=== PATIENT | female | born 1960 | race African-American/Black ===

== ENCOUNTER 2020-09-03 08:09 | Outpatient (CLI) | payer BC ==
[2020-09-03] MEDS ORDERED: Iopamidol 370 76% 100 ML VIAL ONE (14:18)
== END 2020-09-03 08:10 | disposition home or self-care (01) ==
LOC: CT 08:09
PROVIDERS: ATTEND Urology
DX: N20.2 Calculus of kidney with calculus of ureter (principal); G89.29 Other chronic pain; Q61.01 Congenital single renal cyst; Q62.31 Congenital ureterocele, orthotopic; N28.9 Disorder of kidney and ureter, unspecified
CPT/HCPCS: 74178; Q9967

== ENCOUNTER 2020-09-03 14:59 | Outpatient (CLI) | payer BC | END 2020-09-03 15:00 | disposition home or self-care (01) | LOC: BICRAD 14:59 | PROVIDERS: ATTEND Family Medicine | DX: R06.02 Shortness of breath (principal) | CPT/HCPCS: 71046 ==

== ENCOUNTER 2020-09-04 12:12 | Outpatient (CLI) | payer BC ==
[2020-09-04 14:13] LABS: Anion Gap 11 mmol/L (10-20); BUN (Urea Nitrogen) 13 mg/dL (9.8-20.1); Calc. Creatinine Clearance 0 mL/min (70-130); Calcium 9.5 mg/dL (7.8-10.44); Carbon Dioxide 30 mmol/L (22-29); Chloride 107 mmol/L (98-107); Glucose 176 mg/dL (70-105); Potassium 4.1 mmol/L (3.5-5.1); Sodium 144 mmol/L (136-145)
[2020-09-04 14:16] LABS: PTT 30.6 sec (22.0-33.0); Prothrombin Time 10.8 sec (9.5-12.1)
[2020-09-04 14:26] LABS: Hemoglobin 13.7 g/dL (12.0-15.5); Mean Corpuscular HGB CONC 33.5 g/dL (32.0-36.0); Mean Corpuscular Hemoglobin 30.5 pg (27.0-33.0); Mean Corpuscular Volume 91.1 fl (81.6-98.3); Mean Platelet Volume 10.6 fl (7.4-10.4); Platelet Count 242 10x3/uL (150-450); RBC Distribution Width 13.4 % (11.5-14.5); Red Blood Cell (RBC) Count 4.49 10x6/uL (3.90-5.03); White Blood Cell (WBC) Count 7.7 10x3/uL (3.5-10.5)
[2020-09-04 23:16] LABS: SARS-CoV-2 PCR by NAA Not Detected (NotDetected)
== END 2020-09-04 12:13 | disposition home or self-care (01) ==
LOC: LABBT 12:12
PROVIDERS: ATTEND Urology
DX: Z01.818 Encounter for other preprocedural examination (principal); N20.2 Calculus of kidney with calculus of ureter; R35.0 Frequency of micturition; Q61.01 Congenital single renal cyst; Q62.31 Congenital ureterocele, orthotopic; Z20.822 Contact with and (suspected) exposure to COVID-19
CPT/HCPCS: 80048; 85027; 85610; 85730; 87635; 93005; 93010; U0003; U0005

== ENCOUNTER 2020-09-08 14:13 | Outpatient (CLI) | payer BC | END 2020-09-08 14:14 | disposition home or self-care (01) | LOC: BICMAMMO 14:13 | PROVIDERS: ATTEND Family Medicine | DX: Z12.31 Encounter for screening mammogram for malignant neoplasm of breast (principal); Z80.3 Family history of malignant neoplasm of breast | CPT/HCPCS: 77063; 77067 ==

== ENCOUNTER 2020-09-09 08:06 | Day surgery (SDC) | payer BC ==
[2020-09-08 13:03] VITALS: BMI 32.8
[2020-09-09] MEDS ORDERED: Fentanyl 100 MCG/2 ML VIAL ONE ×2 (08:39→12:06)
[2020-09-09] MEDS ORDERED: Levofloxacin 500 mg/D5W 100 ml Premix Bag ONE (09:16)
[2020-09-09] MEDS ORDERED: Midazolam HCl 2 mg/2 ml Vial ONE (10:54)
[2020-09-09] MEDS ORDERED: Iothalamate Meglumine 60% 50 ML VIAL FS ONE (11:56)
[2020-09-09] MEDS ORDERED: Ondansetron PF 4 MG/2 ML Vial ONE (12:18)
[2020-09-09] MEDS ORDERED: Glycopyrrolate 0.2 MG/ML 5 ML SYRINGE ONE (12:18)
[2020-09-09] MEDS ORDERED: diphenhydrAMINE 50 MG/ML VIAL ONE (12:18)
[2020-09-09] MEDS ORDERED: Dexamethasone 20 MG/5 ML VIAL ONE (12:18)
[2020-09-09] MEDS ORDERED: ePHEDrine 50 MG/ML VIAL ONE (12:18)
[2020-09-09] MEDS ORDERED: PROPOFOL 200 MG/20 ML VIAL ONE (12:18)
[2020-09-09] MEDS ORDERED: Rocuronium Bromide 10 MG/ML (10ML VIAL) ONE (12:18)
[2020-09-09] MEDS ORDERED: SUGAMMADEX SODIUM 200 MG/2 ML VIAL ONE (13:06)
[2020-09-09] MEDS ORDERED: Promethazine HCl 25 MG/ML VIAL ONE (13:19)
[2020-09-09] MEDS ORDERED: Phenazopyridine HCl 100 MG TAB ONE (13:42)
[2020-09-09] MEDS ORDERED: Oxybutynin 5 MG TAB ONE (13:42)
== END 2020-09-09 15:25 | disposition home or self-care (01) ==
LOC: SDC 08:06
PROVIDERS: ATTEND Urology
PROC: 0TC38ZZ Extirpation of Matter from Right Kidney Pelvis, Via Natural or Artificial Opening Endoscopic (ICD-10-PCS; principal; 2020-09-09)
PROC: 0T768DZ Dilation of Right Ureter with Intraluminal Device, Via Natural or Artificial Opening Endoscopic (ICD-10-PCS; principal; 2020-09-09)
PROC: 0TC68ZZ Extirpation of Matter from Right Ureter, Via Natural or Artificial Opening Endoscopic (ICD-10-PCS; principal; 2020-09-09)
DX: N13.2 Hydronephrosis with renal and ureteral calculous obstruction (principal); N28.1 Cyst of kidney, acquired; Z79.899 Other long term (current) drug therapy; Z87.891 Personal history of nicotine dependence
CPT/HCPCS: 74018; 74420; J1100; J1200; J1956; J2250; J2405; J2550; J2704; J3010; J3490; Q9961

== ENCOUNTER 2020-10-27 12:53 | Outpatient (CLI) | payer BC | END 2020-10-27 12:54 | disposition home or self-care (01) | LOC: BICRAD 12:53 | PROVIDERS: ATTEND Urology | DX: N20.0 Calculus of kidney (principal) | CPT/HCPCS: 74018 ==

== ENCOUNTER 2020-12-18 11:19 | Outpatient (CLI) | payer BC | END 2020-12-18 11:20 | disposition home or self-care (01) | LOC: LABBT 11:19 | PROVIDERS: ATTEND Urology | DX: Z01.818 Encounter for other preprocedural examination (principal) | CPT/HCPCS: 87086; 93005; 93010 ==

== ENCOUNTER 2021-01-01 13:40 | Outpatient (CLI) | payer BC ==
[2021-01-01 15:07] LABS: Anion Gap 13 mmol/L (10-20); BUN (Urea Nitrogen) 11 mg/dL (9.8-20.1); Calc. Creatinine Clearance 0 mL/min (70-130); Calcium 9.6 mg/dL (7.8-10.44); Carbon Dioxide 24 mmol/L (22-29); Chloride 108 mmol/L (98-107); Glucose 120 mg/dL (70-105); Hemoglobin 13.2 g/dL (12.0-15.5); Mean Corpuscular HGB CONC 33.9 g/dL (32.0-36.0); Mean Corpuscular Hemoglobin 30.6 pg (27.0-33.0); Mean Platelet Volume 10.4 fl (7.4-10.4); Platelet Count 246 10x3/uL (150-450); RBC Distribution Width 13.4 % (11.5-14.5); Red Blood Cell (RBC) Count 4.32 10x6/uL (3.90-5.03); Sodium 141 mmol/L (136-145); White Blood Cell (WBC) Count 7.1 10x3/uL (3.5-10.5)
[2021-01-01 15:18] LABS: PTT 27.4 sec (22.0-33.0); Prothrombin Time 10.8 sec (9.5-12.1)
[2021-01-02 14:40] LABS: SARS-CoV-2 PCR by NAA Not Detected (NotDetected)
== END 2021-01-01 13:41 | disposition home or self-care (01) ==
LOC: LABBT 13:40
PROVIDERS: ATTEND Urology
DX: Z01.812 Encounter for preprocedural laboratory examination (principal); N20.2 Calculus of kidney with calculus of ureter; Z20.822 Contact with and (suspected) exposure to COVID-19
CPT/HCPCS: 80048; 85027; 85610; 85730; U0003; U0005

== ENCOUNTER 2021-11-01 12:07 | Outpatient (CLI) | payer BC | END 2021-11-01 12:08 | disposition home or self-care (01) | LOC: BICMAMMO 12:07 | PROVIDERS: ATTEND Family Medicine | DX: Z12.31 Encounter for screening mammogram for malignant neoplasm of breast (principal); Z80.3 Family history of malignant neoplasm of breast | CPT/HCPCS: 77063; 77067 ==

== ENCOUNTER 2022-07-22 11:32 | Outpatient (CLI) | payer BC ==
[~2022-07-22 11:32] MED LIST: Iopamidol 370 76% 100 ML VIAL ONE
== END 2022-07-22 11:33 | disposition home or self-care (01) ==
LOC: CT 11:32
PROVIDERS: ATTEND Urology
DX: N20.0 Calculus of kidney (principal); Q61.01 Congenital single renal cyst; Q62.31 Congenital ureterocele, orthotopic; N29 Other disorders of kidney and ureter in diseases classified elsewhere
CPT/HCPCS: 36415; 74178; 80048; 81001; 82565; Q9967

== ENCOUNTER 2022-12-21 10:23 | Outpatient (CLI) | payer BC ==
[2022-12-21] MEDS ORDERED: Iopamidol-370 76% 500 ML MDV (1 ML CHARGE) ONE (11:28)
== END 2022-12-21 10:24 | disposition home or self-care (01) ==
LOC: BICCT 10:23
PROVIDERS: ATTEND Urology
DX: N20.0 Calculus of kidney (principal); R31.0 Gross hematuria
CPT/HCPCS: 74178; 82565

== ENCOUNTER 2023-07-19 14:36 | Outpatient (CLI) | payer BC | END 2023-07-19 14:37 | disposition home or self-care (01) | LOC: BICRAD 14:36 | PROVIDERS: ATTEND Urology | DX: Z12.31 Encounter for screening mammogram for malignant neoplasm of breast (principal); N20.0 Calculus of kidney; Z80.3 Family history of malignant neoplasm of breast | CPT/HCPCS: 74018; 77063; 77067 ==

== ENCOUNTER 2024-08-02 10:38 | Outpatient (CLI) | payer BC | END 2024-08-02 10:39 | disposition home or self-care (01) | LOC: BICMRI 10:38 | PROVIDERS: ATTEND Nurse Practitioner Family | DX: M19.011 Primary osteoarthritis, right shoulder (principal); M75.121 Complete rotator cuff tear or rupture of right shoulder, not specified as traumatic; M47.22 Other spondylosis with radiculopathy, cervical region; M47.813 Spondylosis without myelopathy or radiculopathy, cervicothoracic region | CPT/HCPCS: 72141 ==